=== PATIENT | male | born 1985 | race Caucasian/White ===

== ENCOUNTER 2021-08-20 18:41 | Emergency (ER) | payer SELFPAY ==
[~2021-08-20] VITALS: Ht 167.6 cm; Wt 95.0 kg
[2021-08-20] MEDS ORDERED: ACETAMINOPHEN 325MG TABLET PO STA (20:27)
[2021-08-20] MEDS ORDERED: LEVETIRACETAM 1000MG PREMIX 100 ML IV ONE (20:30)
[2021-08-20 20:38] LABS: BASOPHILS % 0.7 % (0.0-2.0); EOSINOPHILS % 0.5 % (0.0-5.0); HEMATOCRIT. 50.5 % (42.0-52.0); HEMOGLOBIN. 17.4 g/dL (14.0-18.0); LYMPHOCYTES % 20.9 % (20.0-50.0); MEAN CORPUSCULAR HEMOGLOBIN 32.2 pg (28.0-32.0); MEAN CORPUSCULAR VOLUME 93.3 fL (80.0-94.0); MEAN PLATELET VOLUME 8.5 fl (7.4-10.4); MONOCYTES % 13.1 % (2.0-8.0); NEUTROPHILS % 64.8 % (40.0-76.0); PLATELET 367 x1000/uL (130-400); RED BLOOD CELL COUNT 5.41 mill/uL (4.7-6.1); RED CELL DISTRIBUTION WIDTH 13.3 % (11.6-14.6)
[2021-08-20] MEDS ORDERED: LEVETIRACETAM 1,000 MG in SODIUM CHLORIDE 0.9% 100 ML IV NR (20:45)
[2021-08-20 20:46] LABS: CHLORIDE 100 mEq/L (98-107)
[2021-08-20 20:50] LABS: ETHANOL BLOOD < 10 mg/dL
[2021-08-20] MEDS ORDERED: MORPHINE SULFATE 4 MG/ML CPJ (NOT FOR IM USE) IV ONE (22:00)
[2021-08-20] MEDS ORDERED: SODIUM CHLORIDE 0.9% 1,000 ML IV ONE (22:00)
[2021-08-21 00:19] LABS: CLARITY URINE CLEAR (CLEAR); COLOR URINE YELLOW (YELLOW); KETONES URINE TRACE (NEGATIVE); LEUKOCYTE ESTERASE URINE NEGATIVE (NEGATIVE); NITRITE URINE NEGATIVE (NEGATIVE); OCCULT BLOOD URINE NEGATIVE (NEGATIVE); PH URINE 5.5 (4.5-8.0); PROTEIN URINE NEGATIVE (NEGATIVE); SPECIFIC GRAVITY URINE 1.006 (1.005-1.030); UROBILINOGEN URINE 0.2 E.U./dL (0.2-1.0)
[2021-08-21 00:23] LABS: *BENZODIAZEPINES SCREEN URINE NEGATIVE (NEGATIVE); *COCAINE SCREEN URINE NEGATIVE (NEGATIVE); METHADONE URINE SCREEN NEGATIVE (NEGATIVE); OPIATES URINE SCREEN NEGATIVE (NEGATIVE)
[2021-08-21 00:24] LABS: *AMPHETAMINES SCREEN URINE PRESUMTIVE POSITIVE (NEGATIVE); *BARBITURATES SCREEN URINE NEGATIVE (NEGATIVE); CANNABINOID URINE SCREEN PRESUMTIVE POSITIVE (NEGATIVE); PHENCYCLIDINE URINE SCREEN NEGATIVE (NEGATIVE)
[2021-08-21] MEDS ORDERED: KEPP500 MT (00:34)
[2021-08-21 03:28] VITALS: BP 103/61
== END 2021-08-21 03:50 | disposition home or self-care (01) ==
LOC: ER 18:41
DX: G40.909 Epilepsy, unspecified, not intractable, without status epilepticus (principal); Z91.14 Patient's other noncompliance with medication regimen; R53.1 Weakness; R00.0 Tachycardia, unspecified; E87.1 Hypo-osmolality and hyponatremia; R05.9 Cough, unspecified; J34.89 Other specified disorders of nose and nasal sinuses
CPT/HCPCS: 36415; 70450; 71045; 74176; 80053; 80305; 80320; 81003; 82962; 85025; 93005; 96361; 96365; 96375; 99285; J1953; J2270; J7030; J7050; Z7610; G0480